=== PATIENT | female | born 1985 | race Caucasian/White ===

== ENCOUNTER 2017-01-11 18:39 | Observation (INO) | payer MEDICAID ==
[2017-01-11] MEDS ORDERED: Sodium Chloride 0.9% 1,000 ML IV ONE (19:49)
--- NOTE | 2017-01-11 19:50 | C.PDOC ---
History Of Present Illness 31 year old female c/o left flank pain and LUQ abdominal pain for 2 days. Pt is in mild distress and reports LUQ pain as waxing and waning. Pt notes vomiting that occurred 3 am today, fever, and chills. Pt notes normal bowel movements but denies nausea, dysuria, blood in urine, diarrhea, vaginal discharge, or any other complaints. Time Seen by Provider: 01/11/17 19:29 Chief Complaint (Nursing): Abdominal Pain History Per: Patient History/Exam Limitations: no limitations Onset/Duration Of Symptoms: Days Current Symptoms Are (Timing): Still Present Severity: Mild Location Of Pain/Discomfort: LUQ, Other (Left flank pain) Associated Symptoms: Fever, Chills, Vomiting. denies: Nausea, Diarrhea Past Medical History Reviewed: Historical Data, Nursing Documentation, Vital Signs Vital Signs: Last Vital Signs Temp 98.2 F 01/11/17 21:03 Pulse 78 01/11/17 21:03 Resp 20 01/11/17 21:03 BP 121/74 01/11/17 21:03 Pulse Ox 99 01/11/17 21:28 - Medical History PMH: Anxiety, Depression, HTN, Hyperthyroidism, Hypothyroidism, Migraine Family History: States: Unknown Family Hx - Social History Hx Tobacco Use: Yes Hx Alcohol Use: Yes Hx Substance Use: No - Immunization History Hx Tetanus Toxoid Vaccination: No Hx Influenza Vaccination: Yes Hx Pneumococcal Vaccination: No Review Of Systems Except As Marked, All Systems Reviewed And Found Negative. Constitutional: Positive for: Fever, Chills Gastrointestinal: Positive for: Vomiting. Negative for: Nausea, Diarrhea Genitourinary: Negative for: Dysuria, Hematuria, Vaginal Discharge Physical Exam - Physical Exam Appears: Non-toxic, In Acute Distress (Mild ) Skin: Warm, Dry Head: Atraumatic, Normacephalic Eye(s): bilateral: Normal Inspection Chest: Symmetrical Cardiovascular: Rhythm Regular, No Murmur Respiratory: Normal Breath Sounds, No Rales, No Rhonchi, No Wheezing Gastrointestinal/Abdominal: Soft, Tenderness (LUQ tenderness. Left CVA tenderness.) Neurological/Psych: Oriented x3, Normal Speech Gait: Steady ED Course And Treatment - Laboratory Results Result Diagrams: 01/11/17 20:01 01/11/17 20:01 Urine POC: Negative ECG: Interpreted By Me, Viewed By Me ECG Rhythm: Sinus Tachycardia O2 Sat by Pulse Oximetry: 99 (Room air) Pulse Ox Interpretation: Normal Medical Decision Making Medical Decision Making: Plans: -Morphine -EKG -IV Fluids -Toradol -Zofran -Labs -CT Abd/Pel -Reassess and disposition ED OBSERVATION Discharge: Yes Date of observation admission: 01/11/17 Time of observation admission: 19:00 - Observation admission statement Patient is being placed in observation because:: ABD PAIN, FLANK PAIN, VOMITING - Goals of Observation Goals of observation are:: NEG SURG ABD, SX IMPROVE - Progress Note Progress Note: 01/12/17 02:37 Disposition Counseled Patient/Family Regarding: Studies Performed, Diagnosis, Need For Followup, Rx Given - Disposition Disposition: HOME/ ROUTINE Disposition Time: 01:00 Condition: IMPROVED - Clinical Impression Clinical Impression: Abdominal pain - Scribe Statement The provider has reviewed the documentation as recorded by the Scribe Kait mcclure
[2017-01-11] MEDS ORDERED: Morphine 4 MG/ML VIAL ONE (19:53)
[2017-01-11 20:08] LABS: BASO # 0.1 K/uL (0.0-0.2); BASO % 0.5 % (0.0-2.0); EOS # 0.1 K/uL (0.0-0.7); EOS % 1.5 % (0.0-4.0); LYMPH # 1.7 K/uL (1.0-4.3); LYMPH % 17.4 % (20.0-40.0); MEAN CELL VOLUME 85.5 fL (81.0-99.0); MEAN CORPUSCULAR HEMOGLOBIN 28.3 pg (27.0-31.0); MEAN CORPUSCULAR HGB CONC 33.1 g/dL (33.0-37.0); MEAN PLATELET VOLUME 9.5 fL (7.2-11.7); MONO # 0.7 K/uL (0.0-0.8); MONO % 7.3 % (0.0-10.0); RED CELL DISTRIBUTION WIDTH 13.9 % (11.5-14.5); WHITE BLOOD COUNT 9.5 K/uL (4.8-10.8)
[2017-01-11 20:10] LABS: CHLORIDE 97 mmol/L (98-107)
[2017-01-11 20:11] LABS: POTASSIUM 3.4 mmol/L (3.6-5.2); SODIUM 139 mmol/L (132-148)
[2017-01-11 20:13] LABS: RBC URINE 3 /hpf (0-3); URINE BACTERIA FEW (<OCC); URINE BILIRUBIN NEGATIVE (NEGATIVE); URINE BLOOD NEGATIVE (NEGATIVE); URINE COLOR Yellow (YELLOW); URINE GLUCOSE (UA) NORMAL (Normal); URINE KETONE NEGATIVE (NEGATIVE); URINE LEUKOCYTE ESTERASE TRACE Leu/uL (Negative); URINE PROTEIN 1+ mg/dL (NEGATIVE); WBC URINE 4 /hpf (0-5)
[2017-01-11 20:13] LABS: ALB/GLOB RATIO 1.3 (1.0-2.1); ALKALINE PHOSPHATASE 43 U/L (38-126); AST/SGOT 34 U/L (14-36); BILIRUBIN,TOTAL 0.6 mg/dL (0.2-1.3); BLOOD UREA NITROGEN 13 mg/dL (7-17); CARBON DIOXIDE 27 mmol/L (22-30); GFR AFRICAN-AMERICAN > 60; TOTAL PROTEIN 7.2 g/dL (6.3-8.3)
[2017-01-11 20:14] LABS: ALT/SGPT 32 U/L (9-52); CALCIUM 7.4 mg/dl (8.6-10.4); GLUCOSE,RANDOM 84 mg/dL (65-105)
[2017-01-11 21:04] VITALS: BP 121/74; PULSE 78; RESP 20; TEMP 98.2
[2017-01-11 21:13] VITALS: O2SAT 99
--- NOTE | 2017-01-12 10:14 | CT ---
PROCEDURE: CT Abdomen and Pelvis without intravenous contrast HISTORY: Left flank pain COMPARISON: Abdominal ultrasound dated 12/27/2015 TECHNIQUE: Multiple contiguous axial images were performed through the abdomen and pelvis without intravenous contrast. Subsequently, sagittal and coronal reformatted images were obtained.. Radiation dose: Total exam DLP = 1040 mGy-cm. This CT exam was performed using one or more of the following dose reduction techniques: Automated exposure control, adjustment of the mA and/or kV according to patient size, and/or use of iterative reconstruction technique. FINDINGS: LOWER THORAX: 3 millimeter calcified nodule at the left lung base. LIVER: 2 millimeter calcified nodule in the medial right hepatic lobe on series 3, image 43. No gross lesion or ductal dilatation. GALLBLADDER AND BILE DUCTS: Unremarkable. PANCREAS: Unremarkable. No gross lesion or ductal dilatation. SPLEEN: Unremarkable. ADRENALS: Unremarkable. No mass. KIDNEYS AND URETERS: Unremarkable. No hydronephrosis. No solid mass. VASCULATURE: Unremarkable. No aortic aneurysm. BOWEL: Unremarkable. No obstruction. No gross mural thickening. APPENDIX: Unremarkable. Normal appendix. PERITONEUM: Unremarkable. No free fluid. No free air. LYMPH NODES: Unremarkable. No enlarged lymph nodes. BLADDER: Urinary bladder is decompressed but otherwise preserved. REPRODUCTIVE: Right ovary contains small follicles, the largest which measures up to 18 millimeters on the right side. BONES: No acute fracture. OTHER FINDINGS: Small fat containing paraumbilical hernia. IMPRESSION: Small right ovarian follicles as described above. Evidence for prior granulomatous disease. Otherwise negative acute. These findings were preliminarily reported at 9:06 p.m. on 01/11/[address] Jalil Poole from [employer]
--- NOTE | 2017-01-12 10:18 | US ---
HISTORY: PELVIC PAIN RO TORSION COMPARISON: Transvaginal pelvic ultrasound performed 02/11/14 TECHNIQUE: Transvaginal pelvic ultrasound. FINDINGS: UTERUS: Measures 7.7 x 3.1 x 5.3 cm. Anteverted. ENDOMETRIUM: Measures 2 mm in diameter. Trace fluid within the endometrial cavity. CERVIX: No cervical abnormality identified. RIGHT OVARY: Measures 3.0 x 2.3 x 3.4 cm. Blood flow is demonstrated. LEFT OVARY: Measures 3.3 x 1.8 x 3.1 cm. Blood flow is demonstrated. FREE FLUID: Small pelvic free fluid. OTHER FINDINGS: None. IMPRESSION: No acute pathology identified. Incidental findings as above. Preliminary impression was provided by virtual radiologic.
--- NOTE | 2017-01-15 08:58 | CARD ---
APPROVED REPORT EKG Measurement Heart [id number] [place] 142P60 [id number] <Conclusion> Normal sinus rhythm Normal ECG
== END 2017-01-12 01:00 | disposition home or self-care (01) ==
LOC: C.ER 18:39 → C.9OBSV 19:00
PROVIDERS: ADMIT Emergency Medicine; ATTEND Emergency Medicine
DX: R10.12 Left upper quadrant pain (principal); R11.2 Nausea with vomiting, unspecified; I10 Essential (primary) hypertension; E03.9 Hypothyroidism, unspecified
CPT/HCPCS: 74176; 76830; 80053; 81001; 83690; 85025; 87086; 93005; 96374; 96375; G0378; J2765

== ENCOUNTER 2017-05-08 20:07 | Emergency (ER) | payer MEDICAID ==
[2017-05-08 20:20] VITALS: TEMP 98.1
[2017-05-08 20:39] VITALS: RESP 18
--- NOTE | 2017-05-08 20:59 | C.PDOC ---
History Of Present Illness 32 year old female who presents to the ER with a complaint of elevated blood pressure, mild neck pain and left sided chest discomfort. [place], patient has an extensive benzo and narcotic regiment. Denies SOB, nausea, or vomiting. Time Seen by Provider: 05/08/17 20:46 Chief Complaint (Nursing): Chest Pain History Per: Patient History/Exam Limitations: no limitations Onset/Duration Of Symptoms: Hrs Current Symptoms Are (Timing): Still Present Associated Symptoms: denies: Nausea, Dyspnea, Diaphoresis Modifying Factors: None Exacerbating Factors: None Alleviating Factors: None Recent travel outside of the [place]: No Past Medical History Reviewed: Historical Data, Nursing Documentation, Vital Signs Vital Signs: Last Vital Signs Temp 98.1 F 05/08/17 20:17 Pulse 84 05/08/17 21:04 Resp 18 05/08/17 21:04 BP 157/99 H 05/08/17 21:04 Pulse Ox 99 05/08/17 21:04 - Medical History PMH: Anxiety, Depression, HTN, Hyperthyroidism, Hypothyroidism, Migraine Surgical History: No Surg Hx Family History: States: Unknown Family Hx - Social History Hx Tobacco Use: Yes Hx Alcohol Use: Yes Hx Substance Use: No - Immunization History Hx Tetanus Toxoid Vaccination: No Hx Influenza Vaccination: Yes Hx Pneumococcal Vaccination: No Review Of Systems Constitutional: Negative for: Fever, Chills Cardiovascular: Positive for: Chest Pain Respiratory: Negative for: Shortness of Breath Gastrointestinal: Negative for: Nausea, Vomiting Musculoskeletal: Positive for: Neck Pain Physical Exam - Physical Exam Appears: Non-toxic, No Acute Distress Skin: Normal Color, Warm, Dry Head: Atraumatic, Normacephalic Oral Mucosa: Moist Neck: Paracervical Tenderness (left trapezius) Chest: Symmetrical, Tenderness (mild to left upper chest) Cardiovascular: Rhythm Regular, No Murmur Respiratory: Normal Breath Sounds, No Rales, No Rhonchi, No Wheezing Gastrointestinal/Abdominal: Soft, No Tenderness Neurological/Psych: Oriented x3, Normal Speech, Normal Cognition ED Course And Treatment ECG: Interpreted By Me ECG Rhythm: Sinus Rhythm ECG Interpretation: Normal Rate From EC O2 Sat by Pulse Oximetry: 100 Progress Note: Motrin administered. Medical Decision Making Medical Decision Making: musculoskeletal pain (mild) of L trapezius and L upper chest no jvd no CHF declined PO lasix in ED, prefers to take own @ home. [place] [employer] reviewed: extensive anxiety/narcotics regimen pinpoint pupils on exam Disposition Doctor Will See Patient In The: Office Counseled Patient/Family Regarding: Studies Performed, Diagnosis - Disposition Referrals: Brooke Bains APN [Advanced Practice Nurse] - Disposition: HOME/ ROUTINE Disposition Time: 20:58 Condition: GOOD Additional Instructions: ibuprfeno 400-600 mg cada 6 horas dameon necessario Pepcid 20 mg en la noche para evitar irritacion' del estomago debido al ibuprofeno bolsa de hielo 1/2 hora cada hora. Arie wyatt lasix normalment. No arie praveen agua. Instructions: Costochondritis (ED), Musculoskeletal Pain (ED) Forms: [employer] (Wolof) Print Language: IRANIAN - Clinical Impression Clinical Impression: Chest discomfort, Trapezius muscle strain - Scribe Statement The provider has reviewed the documentation as recorded by the Scribe Girish Gipson All medical record entries made by the Scribe were at my direction and personally dictated by me. I have reviewed the chart and agree that the record accurately reflects my personal performance of the history, physical exam, medical decision making, and the department course for this patient. I have also personally directed, reviewed, and agree with the discharge instructions and disposition.
[2017-05-08 21:05] VITALS: BP 157/99; PULSE 84
[2017-05-08 22:25] VITALS: O2SAT 100
--- NOTE | 2017-05-09 19:14 | CARD ---
APPROVED REPORT EKG Measurement Heart [id number] [place] 130P59 [id number] <Conclusion> Normal sinus rhythm Normal ECG
== END 2017-05-08 21:26 | disposition home or self-care (01) ==
LOC: C.ER 20:07
DX: R07.89 Other chest pain (principal); S16.1XXA Strain of muscle, fascia and tendon at neck level, initial encounter; X58.XXXA Exposure to other specified factors, initial encounter

== ENCOUNTER 2017-09-25 14:09 | Emergency (ER) | payer MEDICAID ==
[2017-09-25 14:31] VITALS: BP 136/91; PULSE 100; RESP 20; TEMP 99.9; O2SAT 100
--- NOTE | 2017-09-25 15:32 | C.PDOC ---
History Of Present Illness 32 year old female with a PMHx of chronic back pain and GERD reports to the ED with complaints of nasal congestion, sore throat, subjective fever, and vague abdominal ache since yesterday. Patient reports taking one Ibuprofen yesterday with no relief. According to [employer], patient receives 60 Tylenol #4s each month for chronic back pain. Patient has not been taking daily stool softeners to counteract constipation from Tylenol #4 use. Patient occasionally uses Laxatives with relief. Patient denies any possibility of due to contraceptive implantation in arm. Patient has been seen in ED with multiple workups performed that have all been normal. Patient takes Omeprazole daily for GERD. Patient denies fever, chills, headache, diarrhea, nausea, vomiting, chest pain, shortness of breath, or other complaints at this time. Time Seen by Provider: 09/25/17 15:07 Chief Complaint (Nursing): Flu-like Symptoms History Per: Patient History/Exam Limitations: no limitations Onset/Duration Of Symptoms: Hrs Current Symptoms Are (Timing): Still Present Location Of Pain: Throat Sick Contacts (Context): None Associated Symptoms: Fever, Sore Throat, Nasal Congestion. denies: Chills, Cough, Nausea, Vomiting, Diarrhea Recent travel outside of the [place]: No Additional History Per: Prior Records Past Medical History Reviewed: Historical Data, Nursing Documentation, Vital Signs Vital Signs: Last Vital Signs Temp 99.9 F H 09/25/17 14:30 Pulse 100 H 09/25/17 14:30 Resp 20 09/25/17 15:49 BP 136/91 H 09/25/17 14:30 Pulse Ox 100 09/25/17 17:26 - Medical History PMH: Anxiety, Depression, HTN, Hyperthyroidism, Hypothyroidism, Migraine Family History: States: Unknown Family Hx - Social History Hx Tobacco Use: Yes Hx Alcohol Use: Yes Hx Substance Use: No - Immunization History Hx Tetanus Toxoid Vaccination: No Hx Influenza Vaccination: No Hx Pneumococcal Vaccination: No Review Of Systems Constitutional: Positive for: Fever (subjective ). Negative for: Chills ENT: Positive for: Nose Congestion, Throat Pain Respiratory: Negative for: Cough, Shortness of Breath Gastrointestinal: Positive for: Abdominal Pain (vague bellyache ). Negative for : Nausea, Vomiting, Diarrhea Physical Exam - Physical Exam Appears: Non-toxic, No Acute Distress, Other (obese female ) Skin: Warm, Dry, No Rash Head: Atraumatic, Normacephalic, No Tenderness Eye(s): bilateral: Normal Inspection, PERRL, EOMI Oral Mucosa: Moist Neck: Supple Chest: Symmetrical, No Deformity Cardiovascular: Rhythm Regular, No Murmur Respiratory: No Rales, No Rhonchi, No Wheezing, Other (clear to auscultation bilaterally ) Extremity: Normal ROM, No Tenderness Neurological/Psych: Oriented x3 ED Course And Treatment O2 Sat by Pulse Oximetry: 100 Medical Decision Making Medical Decision Making: vague viral syndrome s/s normal exam now chronic constipation, prob due to chronic Tylenol #4 for chronic back pain without stool softeners laxative recommended. Disposition Doctor Will See Patient In The: Office Counseled Patient/Family Regarding: Studies Performed, Diagnosis - Disposition Disposition: HOME/ ROUTINE Disposition Time: 15:32 Condition: GOOD Additional Instructions: continue Dayquil/Nyquil as needed for flu-like symptoms, per package instructions Constipation: take a gentle laxative for abdominal colic. Take Colace 100 mg twice a day to help prevent constipation while taking tylenol #4 (narcotic) for your chronic pains as ALL narcotic pain relievers may cause chronic constipation. Instructions: Constipation (ED), Viral Syndrome (ED) Forms: [employer] (Latvian) - Clinical Impression Clinical Impression: Influenza-like illness, Chronic constipation - Scribe Statement The provider has reviewed the documentation as recorded by the Scribe Sheri Sol All medical record entries made by the Scribe were at my direction and personally dictated by me. I have reviewed the chart and agree that the record accurately reflects my personal performance of the history, physical exam, medical decision making, and the department course for this patient. I have also personally directed, reviewed, and agree with the discharge instructions and disposition.
[2017-09-25 15:44] LABS: RBC URINE 2 /hpf (0-3); URINE BACTERIA RARE (<OCC); URINE BILIRUBIN NEGATIVE (NEGATIVE); URINE BLOOD NEGATIVE (NEGATIVE); URINE COLOR Yellow (YELLOW); URINE GLUCOSE (UA) NORMAL (Normal); URINE KETONE NEGATIVE (NEGATIVE); URINE LEUKOCYTE ESTERASE NEG Leu/uL (Negative); URINE PROTEIN NEGATIVE (NEGATIVE); URINE UROBILINOGEN NORMAL mg/dL (0.2-1.0); WBC URINE 2 /hpf (0-5)
== END 2017-09-25 15:49 | disposition home or self-care (01) ==
LOC: C.ER 14:09
DX: J11.1 Influenza due to unidentified influenza virus with other respiratory manifestations (principal); K59.09 Other constipation; I10 Essential (primary) hypertension; Z87.891 Personal history of nicotine dependence

== ENCOUNTER 2017-11-02 16:59 | Emergency (ER) | payer MEDICAID ==
[2017-11-02 17:17] VITALS: BMI 34.4
[2017-11-02 17:20] VITALS: PULSE 73; RESP 20; TEMP 98.7; O2SAT 100
--- NOTE | 2017-11-02 18:03 | C.PDOC ---
History Of Present Illness 32 y/o female complaining of atraumatic right elbow pain into the right wrist for the last 2 months. She also complains of a sensation of swelling, decreased ROM at the right elbow, and trouble grasping items with the right hand. Denies any neck pain, numbness, weakness, fever, chills, or other complaint. She has intermittent taken Motrin without relief. Time Seen by Provider: 11/02/17 17:27 Chief Complaint (Nursing): Upper Extremity Problem/Injury History Per: Patient Onset/Duration Of Symptoms: Days (60) Current Symptoms Are (Timing): Still Present Quality: "Pain" Severity: Moderate Exacerbating Factor(s): Movement Additional History Per: Patient Past Medical History Vital Signs: Last Vital Signs Temp 98.7 F 11/02/17 17:19 Pulse 73 11/02/17 17:19 Resp 20 11/02/17 17:19 BP 147/101 H 11/02/17 17:19 Pulse Ox 100 11/02/17 18:31 - Medical History PMH: Anxiety, Depression, HTN, Hyperthyroidism, Hypothyroidism, Migraine Family History: States: Unknown Family Hx - Social History Hx Tobacco Use: Yes Hx Alcohol Use: Yes Hx Substance Use: No - Immunization History Hx Tetanus Toxoid Vaccination: No Hx Influenza Vaccination: No Hx Pneumococcal Vaccination: No Review Of Systems Constitutional: Negative for: Fever, Chills Musculoskeletal: Positive for: Arm Pain. Negative for: Neck Pain Neurological: Negative for: Weakness, Numbness Physical Exam - Physical Exam Appears: Well, Non-toxic, No Acute Distress Skin: Normal Color (no erythema), Warm, Dry Head: Atraumatic, Normacephalic Neck: Normal ROM, No Midline Cervical Tenderness Cardiovascular: Rhythm Regular Respiratory: Normal Breath Sounds Extremity: Normal ROM (Tenderness with flexion/extension of the right elbow limiting ROM. Able to pronate and supinate. Full ROM of the right shoulder. 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 ) ED Course And Treatment O2 Sat by Pulse Oximetry: 100 (RA) Pulse Ox Interpretation: Normal Medical Decision Making Medical Decision Making: Impression: Right elbow tendonitis Plan: -Urine - XR Right Elbow 731 pm elbow xray neg for fx on my review. pt with lateral epicondyle tenderness, likely tendonitis. will apply acr bandage and d/c with nsaids and ortho f.u Disposition Counseled Patient/Family Regarding: Diagnosis, Need For Followup, Rx Given - Disposition Referrals: Igor Garcia MD [Staff Provider] - Disposition: HOME/ ROUTINE Disposition Time: 19:33 Condition: GOOD Additional Instructions: Wear michael bandage for support if it helps, Cold compresses several times to right elbow. Ibuprofen three times a day. Follow up with orthopedics, Dr Garcia and your PMD. Please take your blood pressure medicine as prescribed. Prescriptions: Ibuprofen [Motrin] 600 mg PO TID #30 tab Instructions: Tendinitis (ED) Forms: [facility] (Danish), General Discharge Instructions - Clinical Impression Clinical Impression: Right elbow tendinitis - Scribe Statement The provider has reviewed the documentation as recorded by the Scribrosita Madrigalter Provider Scribe
[2017-11-02 19:32] VITALS: BP 137/93
--- NOTE | 2017-11-03 08:10 | RAD ---
PROCEDURE: Radiographs of the right elbow. HISTORY: pain lateral epicondyle COMPARISON: No prior. FINDINGS: BONES: Normal. No fracture. JOINTS: Normal. No osteoarthritis. SOFT TISSUES: Focal soft tissues swelling adjacent to the lateral epicondyles. JOINT EFFUSION: None. OTHER FINDINGS: None. IMPRESSION: Soft tissue swelling without acute articular or osseous abnormality. Concordant results with the preliminary interpretation rendered by the emergency department physician procedure.
== END 2017-11-02 19:43 | disposition home or self-care (01) ==
LOC: C.ER 16:59
DX: M77.9 Enthesopathy, unspecified (principal); I10 Essential (primary) hypertension; Z72.0 Tobacco use
CPT/HCPCS: 73080; 96372; 99284; J1885